=== PATIENT | male | born 1950 | race Asian ===

== ENCOUNTER 2019-01-24 02:22 | Emergency (ER) | payer OTHER ==
[~2019-01-24] VITALS: Ht 180.3 cm; Wt 96.6 kg
[~2019-01-24 02:22] MED LIST: HYDROCHLOROTHIAZIDE PO; TERAZOSIN PO
--- NOTE | 2019-01-24 02:26 | NUR ---
Patient to ER bed 1 to gown for evaluation. Side rails up.
[2019-01-24 02:27] VITALS: BP_SYST 164
--- NOTE | 2019-01-24 02:28 | NUR ---
Patient complains of rash from neck down to upper thighs since Saturday morning and has gotten worse and itchy. Pt states he does not know of any allergies and has eaten the same thing that he usually eats. No new laundry detegerent, soap, or lotion. Per pt, and him stayed at [facility] in [place] and that's when he noticed a rash on the abdomen. Pt denies shortness of breath, O2 saturation on room air is 98%. No other injuries/complaints per patient or noted.
--- NOTE | 2019-01-24 02:51 | NUR ---
ER Dr. Boyd at bedside examining patient.
[2019-01-24] MEDS ORDERED: DIPHENHYDRAMINE INJ 50 MG/ML VIAL IM ONE (03:00)
[2019-01-24] MEDS ORDERED: methylPREDNISolone SOD SUCC/PF 62.5 MG/ML VIAL IM ONE (03:00)
--- NOTE | 2019-01-24 03:16 | NUR ---
Medications given. Patient tolerated well.
[2019-01-24 04:05] VITALS: BP_SYST 144
--- NOTE | 2019-01-24 04:05 | NUR ---
Patient given written and verbal discharge instructions and verbalizes understanding. ER MD Boyd discussed with patient the results and treatment provided. Patient in stable condition. ID arm band removed. IV catheter removed intact and dressing applied, no active bleeding. Rx of prednisone and benadryl given. Patient educated on pain management and to follow up with PMD. Pain Scale 0/10. Opportunity for questions provided and answered. Medication side effect fact sheet provided.
== END 2019-01-24 04:05 | disposition home or self-care (01) ==
LOC: SED 02:22
DX: L50.9 Urticaria, unspecified (principal); I10 Essential (primary) hypertension; Z79.899 Other long term (current) drug therapy
CPT/HCPCS: 96372; 99283; J1200; J2930

== ENCOUNTER 2020-08-17 11:19 | Emergency (ER) | payer OTHER ==
[~2020-08-17] VITALS: Ht 177.8 cm; Wt 72.6 kg
[2020-08-17 11:29] VITALS: BP_SYST 173
[2020-08-17] MEDS ORDERED: NACL 0.9% 1,000 ML IV ONE (11:30)
[2020-08-17 12:07] LABS: BASOPHILS # (AUTO) 0.1 K/uL (0.0-0.2); EOSINOPHILS # (AUTO) 0.1 K/uL (0.0-0.4); HEMATOCRIT 43.2 % (36-54); HEMOGLOBIN 14.4 g/dL (14.0-18.0); MEAN CORPUSCULAR HEMOGLOBIN 28 pg (27-31); MEAN CORPUSCULAR HGB CONC 33 % (32-36); MEAN CORPUSCULAR VOLUME 84 fL (79.0-98.0); MONOCYTES # (AUTO) 0.5 K/uL (0.0-1.0); MONOCYTES % (AUTO) 7.5 % (1.7-9.3); NEUTROPHILS # (AUTO) 5.4 K/uL (1.8-7.7); NEUTROPHILS % (AUTO) 75.5 % (40.0-70.0); PLATELET COUNT (AUTO) 234 K/uL (130-430); RED BLOOD CELL COUNT(AUTO) 5.12 MIL/uL (4.2-6.2); RED CELL DISTRIBUTION WIDTH 14.8 % (9.0-15.0); WHITE BLOOD COUNT (AUTO) 7.2 K/uL (4.8-10.8)
[2020-08-17 12:12] LABS: CALCIUM 9.7 mg/dL (8.4-11.0); CREATININE 1.17 mg/dL (0.55-1.30); POTASSIUM 4.1 mmol/L (3.5-5.1)
[2020-08-17 12:14] LABS: PROTHROMBIN TIME 10.5 SECS (9.5-12.5)
[2020-08-17 12:17] LABS: ALBUMIN 3.8 g/dL (3.4-4.8); TOTAL BILIRUBIN 0.8 mg/dL (0.0-1.0)
[2020-08-17 14:03] LABS: BILIRUBIN,URINE NEGATIVE (NEGATIVE); BLOOD, URINE NEGATIVE (NEGATIVE); CLARITY/URINE CLEAR (CLEAR); COLOR,URINE YELLOW (YELLOW); GLUCOSE,URINE NEGATIVE (NEGATIVE); KETONES,URINE NEGATIVE (NEGATIVE); LEUKOCYTE ESTERASE ,URINE TRACE (NEGATIVE); NITRITE, URINE NEGATIVE (NEGATIVE); PH,URINE 6.5 (5.0-8.0); PROTEIN URINE NEGATIVE (NEGATIVE); UROBILINOGEN,URINE 0.2 (0.2-1.0)
[2020-08-17 14:18] LABS: BACTERIA,URINE RARE /HPF (None Seen); MUCUS,URINE 1+ /LPF (None Seen); RBC,URINE 0-3 /HPF (0-3); WBC,URINE 0-3 /HPF (0-3)
[2020-08-17 15:00] VITALS: BP_SYST 149
== END 2020-08-17 14:59 | disposition home or self-care (01) ==
LOC: SED 11:19
DX: R42 Dizziness and giddiness (principal); G44.209 Tension-type headache, unspecified, not intractable; I10 Essential (primary) hypertension; Z79.899 Other long term (current) drug therapy
CPT/HCPCS: 36415; 70450; 71045; 76376; 80053; 81000; 83605; 84484; 85025; 85610; 93005; 96360; 99284; J7030